=== PATIENT | male | born 1950 | race Caucasian/White ===

== ENCOUNTER → 2016-03-20 | Day surgery (SDC) | payer MEDICARE, MEDICAID ==
[~2016-03-20] MED LIST: DEXAMETHASONE 4 MG/ML VIAL IV ONE; FENTANYL 100 MCG/2 ML VIAL IV PRN; FENTANYL 250 MCG/5 ML VIAL IV ONE; Gentamicin 80 mg/50 ml NaCl 80 MG/50 ML RTU ONE; HYDROmorphone 1 MG INJECTION IV PRN; ISOVUE-300 (61%) 50 ML ONE; LABETALOL 20 MG/4 ML SYRINGE IV PRN; LIDOCAINE 100 MG PFS IV ONE; Levofloxacin 500 mg/100 ml D5W 500 MG/100 ML RTU IV ONE; MEPERIDINE 25 MG/ML TUBEX IV PRN; ONDANSETRON HCL 4 MG ODT TAB PO PRN; ONDANSETRON HCL 4 MG/2 ML VIAL IV ONE; ONDANSETRON HCL 4 MG/2 ML VIAL IV PRN; PROPOFOL 200 MG/20 ML VIAL IV ONE; SUCCINYLCHOLINE 20 MG/1 ML INJ 10 ML MDV IV ONE; hydrALAZINE 20 MG/ML VIAL IV PRN
[2016-03-20 08:54] LABS: BLOOD UREA NITROGEN 13 MG/DL (9-20); CALCIUM 9.7 MG/DL (8.4-10.2); CALCULATED OSMOLALITY 268 MOs/Kg (270-290); CHLORIDE 99 mEq/L (98-107); GLUCOSE 135 MG/DL (70-99); SODIUM LEVEL 138 mEq/L (137-146); TOTAL PROTEIN 8.3 G/DL (6.3-8.2)
--- NOTE | 2016-03-20 09:16 | HIM.ANES ---
Anesthesia Evaluation & Plan Diagnoses: URETHRAL STRICTURE, UNSPECIFIED (03/20/16) Consented Procedure: CYSTOSCOPY,INTERNAL URETHROTOMY - Focused Review of Systems Cardiac History: Yes: Hx Hypertension, Hx Angina, Hx Cardiac Catheterization, Hx Coronary Stent (STENT X2 2012), Hx Cardiac Disorders, Hx Abnormal Cholesterol/Hyperlipidemia, Hx Coronary Artery Bypass Graft (2012) HEENT: Yes: Hx Vision Problem (PRESCRIPTION GLASSES), Other HEENT Problems Hx Other HEENT Problems: ALLERGIC RHINNITIS Gastrointestinal: Yes: Hx Gastroesophageal Reflux Disease, Hx Gastrointestinal Disorders Neurological/Musculoskeletal: Yes: Hx Neurological Disorders Other Neurological Problems: DIABETIC NEUROPATHY Psychological: No Hx Mental/Emotional Disorders Endocrine: Yes: Hx Non-Insulin Dependent Diabetes Blood/Autoimmune: No: Hx AIDS, Hx Hepatitis (type) Smoking Status: Heavy tobacco smoker (5 or more cigarettes/day or daily pipe/ cigar) Surgical History: Yes: CABG (2012) Other Surgical History: PROSTATECTOMY - Focused Physical Exam NPO since: 03/19/16192903/20/17 0530 Mallampati: Class II Thyromental Distance: Greater than 3 Neck: Full Range of Motion Dental: Removable Dental Work Cardiovascular/Chest: Normal Respiratory: Wheezing (consistent with smoking history) Any problems with anesthesia, including nausea and vomiting?: No Any relatives with a history of Malignant Hyperthermia?: No Does the patient have a history of Motion Sickness-: No Other: CBC/BMP/Other 03/20/16 08:35 03/20/16 08:35 Allergies Allergy/AdvReac Type Severity Reaction Status Date / Time No Known Allergies Allergy Verified 03/20/16 08:47 Home Medications Medication Instructions Recorded Last Taken Type Finasteride 5 mg PO DAILY 03/17/16 03/20/16 05:30 History Glipizide [Glipizide ER] 5 mg PO DAILY 03/17/16 03/19/16 20:00 History Hydrochlorothiazide 12.5 mg PO DAILY 03/17/16 03/19/16 20:00 History Lisinopril 10 mg PO DAILY 03/17/16 03/20/16 05:30 History Metformin HCl [Metformin HCl ER] 500 mg PO DAILY 03/17/16 03/19/16 20:00 History Simvastatin 80 mg PO DAILY 03/17/16 Unknown History Sulfamethoxazole/Trimethoprim 1 tab PO BID 03/17/16 03/19/16 10:00 History [Bactrim Ds Tablet] Height and Weight Patient's height 6 ft 1 in Patient's weight 89.811 kg Vital Signs Temperature 97.6 F 03/20/16 08:26 Pulse Rate 57 L 03/20/16 08:26 Respiratory Rate 18 03/20/16 08:26 Blood Pressure 175/79 03/20/16 08:26 Pulse Oxygen Saturation 99 03/20/16 08:26 - Anesthetic Plan Anesthesia Type: General ASA Class: 3 -: I have examined this patient and reviewed the medical record. The patient has been assessed prior to anesthesia. Risks and benefits of anesthesia and anesthetic technique options have been discussed and all questions answered. The patient accepts the risk and desires me to proceed with the planned anesthetic.
--- NOTE | 2016-03-20 11:30 | HIMOPRPT ---
PROCEDURE: DATE OF PROCEDURE: 03/20/16 PREOPERATIVE DIAGNOSIS: Urethral stricture, prostate cancer and erectile dysfunction. POSTOPERATIVE DIAGNOSIS: Urethral stricture, prostate cancer and erectile dysfunction. PROCEDURE PERFORMED: Cystoscopy and internal urethrotomy of urethral stricture. SURGEON: Joe Santos MD ANESTHESIA USED: General. INDICATION FOR PROCEDURE: The patient is an 65 BLACK M with a history of prostate cancer and status post placement of inflatable penile prosthesis. He has had recent recurrent cystitis and had surveillance cystoscopy in the office revealing penile urethral strictures. He is brought in now for cystoscopy and internal urethrotomy. PROCEDURE IN DETAIL: The patient was brought into the operating room and placed on the table in the supine position. After adequate general anesthesia was achieved, the patient was carefully placed in lithotomy position, prepped and draped over the genitalia for the performance of cystoscopy. Initially, the 20- Yi urethrotome was passed under vision into the urethra. Penile strictures were noted in the anterior and bulbous urethra. A Intuitson wire was passed for urethral guidance and the strictures were incised at 12 o'clock position. Once this was done I was able to advance through the urethra to the external sphincter which was intact. Inspection of the bladder revealed no gross lesions. I went ahead and filled the bladder and the wire remained in place, the cystoscope was removed. A 16 Yi Hopi tip Padilla was then placed to drain the bladder. At this point the procedure was terminated. The patient tolerated all this well. He was then awakened and taken to the recovery room in good condition.
[2016-03-20 11:45] VITALS: TEMP 97.7
[2016-03-20 12:38] VITALS: PULSE 88
[2016-03-20 13:07] VITALS: BP 130/74
--- NOTE | 2016-03-20 13:07 | SC.ANESPOS ---
Post-Anesthesia Note LOC: Fully Awake Post-Anesthesia Assessment: Awake, Returned to Baseline, Hemodynamically Stable , Pain Control Adequate Phase I & II Recovery Complete: Yes Apparent Anesthesia Complication: No : N PACU Discharge Time: 11:45 - Vital Signs Blood Pressure: 130/74 Pulse: 88 Resp Rate: 16 O2 Sat: 97 Temp: 97.7 F - Comments Anesthesia Discharge Time Report Time 11:45
--- NOTE | 2016-03-20 15:44 | CAPUEKG ---
[place], [place] Test Date: 2016-03-20 Pat Name: BRYAN MASON Department: Room: Gender: Male Recreation Counselor: : Requested By: Order Number: Reading MD: Juan Lopez MD Measurements Intervals Wayne Rate: 55 P: -1 SC: 128 QRS: -4 QRSD: 92 T: 27 QT: 440 QTc: 420 Interpretive Statements Sinus bradycardia Moderate voltage criteria for LVH, may be normal variant Borderline ECG Electronically Signed On 03-20-16 15:44:18 EST by Juan Lopez MD <[id number] [id number]
== END ==
LOC: SDC 08:08
PROVIDERS: ATTEND Urology
PROC: 0T7D8ZZ Dilation of Urethra, Via Natural or Artificial Opening Endoscopic (ICD-10-PCS; principal; 2016-03-20 09:55)
DX: N13.5 Crossing vessel and stricture of ureter without hydronephrosis (principal); N35.9 Urethral stricture, unspecified; C61 Malignant neoplasm of prostate; E11.9 Type 2 diabetes mellitus without complications; N52.9 Male erectile dysfunction, unspecified; I10 Essential (primary) hypertension; E78.00 Pure hypercholesterolemia, unspecified; F17.200 Nicotine dependence, unspecified, uncomplicated; Z79.84 Long term (current) use of oral hypoglycemic drugs; K21.9 Gastro-esophageal reflux disease without esophagitis; Z79.899 Other long term (current) drug therapy; Z95.5 Presence of coronary angioplasty implant and graft
CPT/HCPCS: 52275; 80053; 82962; 85027; 93005; J1580; J1956; J0330; J1100; J2001; J2405; J3010; J3490